=== PATIENT | female | born 1950 | race Caucasian/White ===

== ENCOUNTER → 2020-09-19 | Outpatient (CLI) | payer MEDICARE, OTHER ==
--- NOTE | 2020-09-19 16:04 | KCIC ---
PROCEDURE: KUB STUDY DATE: 09/19/2020 CLINICAL INDICATION / HISTORY: Reason: Sigmoid coln polyp w/perforation. Evaluate for dissolving of clip. / Spl. Instructions: Bladder suspension, cholecystectomy. / History: . . TECHNIQUE: Single AP image of the abdomen was obtained. COMPARISON: None FINDINGS: The lung bases are clear. Moderate stool throughout the visualized large bowel is present. There is a radiopaque density in the pelvis that could reflect the surgical clip following colonic polypectomy. There are streaky lucencies along the left psoas muscle that could represent a small amount of pneumoretroperitoneum. No organomegaly or pathologic calcifications are identified. No acute osseous abnormality. IMPRESSION: Possible minimal retroperitoneum along the left psoas muscle. This could be further investigated by CT if clinically warranted. No radiographic evidence of free intraperitoneal air. There is a radiopaque density in the pelvis, potentially representing the clip placed. Correlate with clinical history. Electronically signed by: Macario Rod MD (09/19/2020 4:01 PM) [id number]
== END ==
LOC: KCIC 11:03
PROVIDERS: ATTEND Internal Medicine
DX: K63.5 Polyp of colon (principal); Z90.49 Acquired absence of other specified parts of digestive tract
CPT/HCPCS: 74018

== ENCOUNTER → 2021-10-13 | Outpatient (CLI) | payer MEDICARE, OTHER ==
--- NOTE | 2021-10-13 17:32 | KCIC ---
DXA BONE DENSITY AXIAL History: Reason: POST MENOPAUSAL / Spl. Instructions: / History: Comparison: None. TECHNIQUE: Dual energy x-ray absorptiometry of the lumbar spine and left hip was performed. T-score o f average bone mineral density based was calculated based on standard deviations above or below the e xpected young adult normal value. Diagnostic definitions were established by the [employer] at[employer]. FINDINGS: The average bone mineral density associated with L1-L4 is 0.65 g/cm^2, corresponding with a T-score of -3.5. The average total bone mineral density associated with left hip is 0.681 g/cm^2, corresponding with a T-score of -2.1. Refer to the worksheets for full detail. IMPRESSION: 1. Osteoporosis. Average bone mineral density yields a T-score of -2.5 or less. Fracture risk is hig h. Electronically signed by: Cayden Moyer DO (10/13/2021 5:30 PM) [id number]
== END ==
LOC: KCIC DEXA 10:21
PROVIDERS: ATTEND Internal Medicine
DX: M81.0 Age-related osteoporosis without current pathological fracture (principal)
CPT/HCPCS: 77080